=== PATIENT | female | born 1975 ===

== ENCOUNTER 2016-10-20 09:54 | Emergency (ER) | payer OTHER ==
[2016-10-20 10:00] VITALS: BMI 31.4
[2016-10-20 10:04] VITALS: BP 128/84; PULSE 65; RESP 16; TEMP 98.9; O2SAT 98
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
== END 2016-10-20 13:50 | disposition home or self-care (01) ==
LOC: ED 09:54
DX: S00.83XA Contusion of other part of head, initial encounter (principal); Y04.2XXA Assault by strike against or bumped into by another person, initial encounter; Y93.89 Activity, other specified; Y92.89 Other specified places as the place of occurrence of the external cause